=== PATIENT | male | born 1960 | race Caucasian/White ===

== ENCOUNTER 2018-02-14 11:13 | Observation (INO) ==
--- NOTE | 2018-02-13 14:34 | Anesthesia Evaluation PreOp ---
Date of Encounter: 02/14/18 Time of Encounter: 11:41 - Past History Planned Operation: Robotic Laparoscopic Cholecystectomy Cardiac History: Denies any Significant Hx Pulmonary History: Former smoker (quit 20 years ago), COPD DIRECTOR EXTERNAL COMMUNICATIONS History: Denies Any Significant HX Other Medical History: Diabetes Type II, Other (obesity BMI=44.6) Anesthesia History: No Prior Anesthetic Complications, Past Anesthesia Alcohol Use: none Drug use: none Medications and Allergies Insulin Glargine [Lantus] 60 unit SQ BID 01/07/16 [History] Metformin HCl [Glucophage] 1,000 mg PO BIDWM 01/07/16 [History] Albuterol Sulfate [Albuterol Inhaler] 2 puff IH Q4HR PRN #1 hfa.aer.ad 01/08/16 [Rx] Cetirizine HCl [Zyrtec] 10 mg PO DAILY #14 tablet 01/08/16 [Rx] Famotidine [Pepcid] 20 mg PO BID #30 tablet 05/07/17 [Rx] Hyoscyamine SL [Levsin SL] 0.125 mg SL Q4HR PRN #7 tab.subl 10/16/17 [Rx] Ondansetron ODT [Zofran ODT] 4 mg SL Q6HR PRN #7 tab.rapdis 10/16/17 [Rx] 3 Allergy/AdvReac Type Severity Reaction Status Date / Time ibuprofen [From Motrin] Allergy See Verified 02/10/18 11:12 Comments Penicillins [PCN] Allergy Hives Verified 02/10/18 11:12 - Meds/Allergy Pre-op Review Medications Reviewed: Yes Allergies Reviewed: Yes Beta Blockers on Current Med List: No Anesthesia Results - Labs Laboratory Tests 10/02/14 10/16/17 10/16/17 17:45 16:45 16:45 WBC 9.7 Hgb Hct 52.5 H Plt Count 281 PT 11.3 INR 1.1 PTT 30.0 Sodium 134 L Potassium BUN Creatinine 0.73 02/10/18 02/10/18 12:00 12:00 WBC Hgb 16.4 Hct Plt Count PT INR PTT Sodium Potassium 4.3 BUN 20 Creatinine - Imaging EKG: report reviewed (10/16/2017 SINUS RHYTHM BORDERLINE RIGHT AXIS DEVIATION Poor R wave progression) Additional studies: 06/16/2016 Stress Impression: Pharmacologic stress ECG is non-diagnostic for ischemia due to failure to reach target heart rate. Gated EF = 75%. Small sized, mild intensity, fixed apical inferior perfusion defect consistent with artifact. Otherwise, this was a fair quality study without evidence of ischemia or prior infarct. Clinical correlation suggested. Anesthesia Exam O2 Sat Height 1.73 m Height 1.73 m Weight 132.903 kg Weight 132.903 kg O2 Sat by Pulse Oximetry 94 Vital Signs Temp Pulse Resp BP Pulse Ox 97.5 F L 92 18 136/81 94 02/14/18 11:38 02/14/18 11:38 02/14/18 11:38 02/14/18 11:38 02/14/18 11:38 Blood Glucose* 295 Height: 5'8'' Weight: 293 lbs NPO (# of Hours): 8 Pain Scale: 0 Pain Scale Used: Numeric (1 - 10) - HEENT Pupil (Motor): EOMI Mallampati: III Teeth: Edentulous Oral Opening: Greater than 3 - DIRECTOR EXTERNAL COMMUNICATIONS LOC: Oriented DIRECTOR EXTERNAL COMMUNICATIONS Motor: Normal RUE, Normal LUE, Normal RLE, Normal LLE, Normal Face DIRECTOR EXTERNAL COMMUNICATIONS Sensory: Normal: RUE, LUE, RLE, LLE, Face - Cardiac Rhythm: Regular Murmur: None - Pulmonary Breath Sounds: bilateral Clear Respiratory Effort: Symmetrical Anesthesia Assess/Plan ASA Score: 3 Modified [place] Scale for Level of Consciousness: Cooperative, oriented, and tranquil Anesthetic Plan: General Monitoring Plan: Standard Monitors Recovery Plan: PACU
[2018-02-14] MEDS ORDERED: Lidocaine -MPF 4% 5 ML AMPUL ONE (11:48)
[2018-02-14] MEDS ORDERED: Ondansetron 4 MG/2 ML VIAL ONE (11:48)
[2018-02-14] MEDS ORDERED: *HR* FentaNYL (PF) 100 MCG/2 ML VIAL ONE ×3 (11:48→15:03)
[2018-02-14] MEDS ORDERED: Lidocaine -MPF 2% 2 ML VIAL ONE (11:48)
[2018-02-14] MEDS ORDERED: *HR* Rocuronium Bromide 50 MG/5 ML VIAL ONE (11:48)
[2018-02-14] MEDS ORDERED: Dexamethasone 4 MG/ML VIAL ONE (11:48)
[2018-02-14] MEDS ORDERED: *HR* Propofol 200 MG/20 ML VIAL IVP ONE ×2 (11:49→13:14)
[2018-02-14] MEDS ORDERED: *HR* Midazolam HCl 2 MG/2 ML VIAL ONE (11:49)
[2018-02-14] MEDS ORDERED: Insulin Regular, Human 100 UNIT/ML SQ ONE (11:52)
[2018-02-14] MEDS ORDERED: Albuterol 2.5 MG/3 ML NEBULIZER IH ONE (11:58)
[2018-02-14] MEDS ORDERED: Clindamycin 900 MG/50 ML 900 MG/50 ML IV.SOLN IVPB ONE (11:58)
[2018-02-14] MEDS ORDERED: Ringers Solution, Lactated 1,000 ML IVC SCH (12:00)
--- NOTE | 2018-02-14 12:07 | History & Physical Report ---
Date of Encounter: 02/14/18 Time of Encounter: 12:07 24 Hour HP Update - Instructions Instructions: If the History and Physical is less than 30 days old and was completed prior to A.M. admission and or procedure and has NOT been updated on calendar day of procedure please complete this update prior to performing procedure. - Update Patient reports changes in Medical Condition: No Changes in examination, assessment, or condition: No Changes in Medication: No Surgery Remains Indicated: Yes Consent for Planned Operative Procedure(s) Verified: Yes - Pre-Operative Checklist Prophylactic Antibiotic Ordered: Yes Home Medications Include Beta Lynette: No Is VTE Prophylaxis Indicated?: Yes
[2018-02-14] MEDS ORDERED: *HR* OxyCODONE Immed Rel 5 MG TABLET PO PRN (13:30)
[2018-02-14] MEDS ORDERED: *HR* FentaNYL (PF) 100 MCG/2 ML VIAL IVP PRN (13:30)
[2018-02-14] MEDS ORDERED: *HR* Labetalol 20 MG/4 ML SYRINGE IVP PRN (13:30)
[2018-02-14] MEDS ORDERED: *HR* Promethazine 25 MG/ML VIAL IVP PRN (13:30)
[2018-02-14] MEDS ORDERED: Ondansetron 4 MG/2 ML VIAL IVP ONE (13:30)
[2018-02-14] MEDS ORDERED: MORPHINE SUL Oral CONC 10 MG/0.5 ML ORAL.SYG SL PRN (13:30)
[2018-02-14] MEDS ORDERED: Lacri-Lube 3.5 GM TUBE ONE (13:52)
[2018-02-14] MEDS ORDERED: *HR* Metoprolol 5 MG/5 ML VIAL IVP ONE (14:19)
--- NOTE | 2018-02-14 15:17 | Operative Note ---
Date of procedure: 02/14/18 Pre-op diagnosis: chronic cholecystitis Post-op diagnosis: same Procedure: Robotic cholecystectomy Complications: none immediate Anesthesia: GETA, local Local Anesthetics: 0.5% Sensorcaine HCL SubQ (cc) Surgeon: Lisa Mendoza Was there an yard assistant present: Yes Identification Technician: Rebecca Meza Estimated blood loss (cc): 30 Specimen: gallbladder and contents Condition: stable Disposition: PACU Procedure in Detail: Patient was brought into the operating suite. Placed supine on the operating table. Sign-in was performed and everyone was in agreement. Anesthesia was induced and patient was endotracheally intubated by anesthesia without incident and they also placed an OG-tube. Patient's right arm was tucked at the side. The abdomen was prepped and draped in the usual sterile fashion. Timeout was performed again everyone was in agreement. A supraumbilical incision was made through the skin into the subcutaneous tissue with an 11 blade. Towel clamps were placed in either side of the umbilicus for retraction. We used S retractors to dissect down to the anterior abdominal wall linea alba fascia. A Veress needle was placed in this incision and the water-drop test confirmed placement. The abdomen was insufflated. We then entered the abdomen with a 5 mm 0 degree laparoscope and a 5 mm X-sheila trocar. The area under entry was visualized there was no bleeding and no apparent bowel injury. We placed an 8 mm robotic port in the left lateral abdominal wall position under direct visualization after first incising the skin with an 11 blade. We then placed a right lateral abdominal wall 8 mm robotic port under direct visualization after first incising the skin with 11 blade.The supraumbilical 5 mm port was exchanged for a 12 mm port. We placed the 5 mm port in the right abdominal wall lateral to the 8mm port, after first incising the skin with an 11 blade. The patient was placed in slight reverse Trendelenburg left side down position. The robot was brought over the patient's right shoulder and all port sites and instruments as well as the camera were docked. The dome of the gallbladder was grasped and retracted cephalad by the yard assistant. The gallbladder was contracted and intrahepatic. The infundibulum of the gallbladder was grasped and retracted laterally. Using a [place] we dissected out the cystic duct and cystic artery. Two hemoclips were placed distally on the cystic duct, 1 proximally, and it was transected with curved scissors. Two hemoclips were placed proximally on the cystic artery, one distally, and transected with curved scissors. The gallbladder was removed off the cystic plate with the Bovie and any bleeding points were stopped with the Bovie. The gallbladder was then placed in a laparoscopic Endo Catch bag and removed via the supraumbilical incision site. The inferior edge of the liver was bluntly retracted cephalad. The cystic plate was irrigated with sterile saline. While elevating the large dense liver there was a small liver tear with oozing. The area was irrigated with sterile saline. A large piece of surgicel was placed at the area and a 19F michaela drain was placed beneath the liver edge and secured to the skin with a 2- 0 silk stitch. All irrigation was suctioned free from the abdomen. All insufflation was suctioned free from the abdomen and the trochars were removed. The abdominal wall at the supraumbilical incision site was closed with an 0 Vicryl figure of 8 stitch. 30 mL of 0.5% Marcaine plain was injected subcutaneously at the 4 port sites. We closed the skin at the two 8 mm port site with 4-0 Monocryl interrupted subcuticular stitches. The skin at the supraumbilical incision site was closed with a 4-0 Monocryl running subcuticular stitch. Steri-Strips and mastisol were applied to all wounds. The patient was awoken in the operating suite having tolerated the procedure well and was taken to PACU in stable condition after all lap and instrument counts were correct at the end of the case.
[2018-02-14 16:40] LABS: Prothrombin Time 11.4 Seconds (9.4-12.1)
--- NOTE | 2018-02-14 16:45 | Anesthesia Evaluation Post Op ---
Date of Encounter: 02/14/18 Time of Encounter: 16:43 - Vital Signs Vital Signs: Vital Signs/O2 Sat, Most Current Temp Pulse Resp BP Pulse Ox 98.6 F 91 22 146/78 92 02/14/18 16:15 02/14/18 16:35 02/14/18 16:35 02/14/18 16:35 02/14/18 16:35 - Lungs Lungs: Clear Ascult./Percussion - Airway Airway: Non-obstructed - Cardiovascular Regular Rate - Mental Status Mental Status: Alert & Oriented, Answers Appropriately - Pain Pain Scale: 6 Pain Scale used: Numeric (1 - 10) - Nausea Vomiting Nausea Vomiting: Not Present - Hydration Hydration: NPO, Has not voided - Discharge PostOp Status: Transfer Patient to floor
[2018-02-14] MEDS ORDERED: Ondansetron 4 MG/2 ML VIAL IVP PRN (17:49)
[2018-02-14] MEDS ORDERED: D5% in Water 1,000 ML IVC PRN (17:49)
[2018-02-14] MEDS ORDERED: Dextrose Gel 15 GM/37.5 ML TUBE PO PRN ×2 (17:49)
[2018-02-14] MEDS ORDERED: OXYCODONE Oral CONC 10 MG/0.5 ML ORAL.SYG SL PRN (17:49)
[2018-02-14] MEDS ORDERED: *HR* Dextrose 50 % in Water (Syg) 50 ML SYRINGE IVP PRN (17:49)
[2018-02-14] MEDS ORDERED: Naloxone 0.4 MG/ML INJ IVP PRN (17:49)
[2018-02-14] MEDS: *HR* OxyCODONE/APAP 5/325 TABLET PO PRN (20:15)
[2018-02-14] MEDS: 0.9 % Sodium Chloride 1,000 ML IVC SCH (20:15)
[2018-02-14] MEDS: Insulin LISPRO 300 UNITS/3 ML VIAL SQ SCH (20:16)
[2018-02-14 21:30] LABS: Hematocrit 45.8 % (37.5-50.1); Hemoglobin 15.7 g/dL (12.9-16.9)
[2018-02-15] MEDS: *HR* OxyCODONE/APAP 5/325 TABLET PO PRN ×2 (06:25→21:28)
[2018-02-15 07:17] LABS: Basophils % 0.2 %; Eosinophils % 0.2 %; Hematocrit 44.4 % (37.5-50.1); Hemoglobin 14.7 g/dL (12.9-16.9); Immature Granulocytes % 0.8 % (0-4); Lymphocytes # 2.8 K/mcL (0.6-4.6); Lymphocytes % 22.5 %; Mean Corpuscular HGB Conc 33.1 g/dL (31.6-35.5); Mean Corpuscular Hemoglobin 29.4 pg (28.0-33.3); Mean Corpuscular Volume 88.8 fL (83.0-100.0); Mean Platelet Volume 10.4 fL (9.4-12.4); Monocytes # 1.1 K/mcL (0.0-1.3); Monocytes % 9.2 %; Neutrophils # 8.3 K/mcL (1.6-8.9); Platelet Count 241 K/mcL (140-400); Red Cell Distribution Width 13.3 % (11.5-14.5); Segmented Neutrophils % 67.1 %
[2018-02-15 07:42] LABS: Alanine Aminotransferase 83 Units/L (7-52); Albumin 4.4 g/dL (3.5-5.7); Albumin/Globulin Ratio 1.6 (1.1-2.2); Alkaline Phosphatase 100 Units/L (34-104); Aspartate Amino Transferase 52 Units/L (13-39); BUN/Creatinine Ratio 24 (6-26); Bilirubin,Direct 0.3 mg/dL (0.0-0.2); Bilirubin,Indirect 1.2 mg/dL (0.0-1.2); Bilirubin,Total 1.5 mg/dL (0.3-1.0); Blood Urea Nitrogen 15 mg/dL (6-20); Calcium 8.9 mg/dL (8.6-10.3); Carbon Dioxide 27 mEq/L (23-29); Chloride 101 mEq/L (98-107); Globulin 2.7 g/dL (2.4-3.5); Glucose 295 mg/dL (70-105); Osmolality,Calculated 296 (280-300); Potassium 3.8 mEq/L (3.5-5.1); Sodium 137 mEq/L (136-145); Total Protein 7.1 g/dL (6.4-8.9); eGFR For African Americans > 60 (> 60); eGFR For Non-African Americans > 60 (> 60)
[2018-02-15] MEDS: Insulin LISPRO 300 UNITS/3 ML VIAL SQ SCH ×3 (08:34→16:36)
[2018-02-15] MEDS: LIRAGLUTIDE 18 MG SQ SCH (08:36)
[2018-02-15] MEDS: Pantoprazole 40 MG VIAL IVP SCH (08:36)
--- NOTE | 2018-02-15 09:43 | General Surgery Progress Note ---
<Lena Hilliard Lisa - Last Filed: 02/15/18 09:59> Date of Encounter: 02/15/18 Time of Encounter: 09:30 - Assessment and Plan (1) S/P cholecystectomy Current Visit: Yes Status: Acute POD #1 Robotic assisted cholecystectomy with Dr. Mendoza Diabetic diet IV fluids- 50ml/hour Strict I&Os PPI therapy daily IS every 1 hour while awake Ambulate hallways TID with assistance Continue JUAN DANIEL drain- education May shower Repeat am labs- CBC, BMP, Hepatic panel (2) Elevated liver function tests Current Visit: Yes Status: Acute Repeat am labs (3) Morbid obesity with BMI of 40.0-44.9, adult Current Visit: Yes Status: Acute (4) Diabetes mellitus Current Visit: Yes Status: Chronic Resume home medication regimen Continue SSI Will continue to monitor and adjust as necessary Qualifiers: Diabetes mellitus type: type 2 Diabetes mellitus senior living insulin use: with senior living use Diabetes mellitus complication status: with hyperglycemia Qualified Code(s): E11.65 - Type 2 diabetes mellitus with hyperglycemia; Z79.4 - snf (current) use of insulin (5) Hypertension Current Visit: Yes Status: Chronic Continue home medication regimen Will continue to monitor and adjust as necessary Qualifiers: Hypertension type: essential hypertension Qualified Code(s): I10 - Essential (primary) hypertension (6) Hyperlipidemia Current Visit: Yes Status: Chronic Continue home medication regimen Qualifiers: Hyperlipidemia type: unspecified Qualified Code(s): E78.5 - Hyperlipidemia , unspecified (7) DVT prophylaxis Current Visit: Yes Status: Acute Ambulate hallways TID with assistance EPCDs to bilateral lower extremities for DVT prophylaxis Subjective Patient reports: still having pain (post-surgical pain), tolerating a regular diet, voiding w/o difficulty, no flatus, no bowel movement, fever (Tmax 99.8, Tcurrent 98.6), other (Patient reports that he is voiding in the toilet because he is unable to stand up and void) Objective Vital Signs - Last 8 Hours Temp Pulse Resp BP Pulse Ox 02/15/18 06:47 98.6 F 94 18 138/87 95 02/15/18 03:35 98.4 F 98 16 126/86 94 Intake and Output 02/14/18 02/15/18 02/15/18 23:59 07:59 15:59 Intake Total 480 / 480 Output Total 105 / 105 60 / 60 Balance -105 / -105 420 / 420 Intake: Oral 480 / 480 Output: Urine 0 / 0 Wound Drainage / 60 / 60 Right Lower Abdomen 85 / 85 60 / 60 Other: # Voids 2 Blood Glucose* 282 295 - General physical appearance well developed, well nourished, moderate pain - Eyes normal ocular movement - ENT normal mucosa, atraumatic, normocephalic - Neck Neck exam: trachea midline - Respiratory normal respiratory effort, clear to auscultation, other (diminished bibasilar bases) - Cardiovascular Cardiovascular exam: Present: RRR - Abdomen Abdomen: Present: bowel sounds present, soft, tender (expected post-operative tenderness), wound (JUAN DANIEL drain to bulb suction with serousang. drainage noted ( 70ml noted since midnight)) - Incision Incision: Present: clean and dry, intact - Neurologic CN 2-12 grossly intact - Psychiatric oriented to time, oriented to person, oriented to place, speech is normal, memory intact - Labs 02/15/18 06:39 02/15/18 06:39 Diabetes panel 02/15/18 Range/Units 06:39 Sodium 137 (136-145) mEq/L Potassium 3.8 (3.5-5.1) mEq/L Chloride 101 (98-107) mEq/L Carbon Dioxide 27 (23-29) mEq/L BUN 15 (6-20) mg/dL Creatinine 0.62 L (0.70-1.30) mg/dL Glucose 295 H (70-105) mg/dL Calcium 8.9 (8.6-10.3) mg/dL AST 52 H (13-39) Units/L ALT 83 H (7-52) Units/L Alkaline Phosphatase 100 (34-104) Units/L Albumin 4.4 (3.5-5.7) g/dL Calcium panel 02/15/18 Range/Units 06:39 Calcium 8.9 (8.6-10.3) mg/dL Albumin 4.4 (3.5-5.7) g/dL Pituitary panel 02/15/18 Range/Units 06:39 Sodium 137 (136-145) mEq/L Potassium 3.8 (3.5-5.1) mEq/L Chloride 101 (98-107) mEq/L Carbon Dioxide 27 (23-29) mEq/L BUN 15 (6-20) mg/dL Creatinine 0.62 L (0.70-1.30) mg/dL Glucose 295 H (70-105) mg/dL Calcium 8.9 (8.6-10.3) mg/dL Adrenal panel 02/15/18 Range/Units 06:39 Sodium 137 (136-145) mEq/L Potassium 3.8 (3.5-5.1) mEq/L Chloride 101 (98-107) mEq/L Carbon Dioxide 27 (23-29) mEq/L BUN 15 (6-20) mg/dL Creatinine 0.62 L (0.70-1.30) mg/dL Glucose 295 H (70-105) mg/dL Calcium 8.9 (8.6-10.3) mg/dL Total Bilirubin 1.5 H (0.3-1.0) mg/dL AST 52 H (13-39) Units/L ALT 83 H (7-52) Units/L Alkaline Phosphatase 100 (34-104) Units/L Albumin 4.4 (3.5-5.7) g/dL - VTE Documentation of Mechanical Device: Intermittent pneumatic compression device Consult Discharge Plan - Plan Referrals: Lisa Mendoza MD [Partnered Physician] - 03/04/18 11:30 am - Attending Attestation For this encounter, I have reviewed the BRUSH HOLDER ASSEMBLER or PA documentation, treatment plan, and medical decision making; and I have had face to face time with this patient. <Lisa Mendoza - Last Filed: 02/15/18 17:04> Date of Encounter: 02/15/18 Objective Vital Signs - Last 8 Hours Temp Pulse Resp BP Pulse Ox 02/15/18 16:24 97.9 F 94 20 99/64 93 02/15/18 12:10 98.5 F 100 16 106/70 95 Intake and Output 02/15/18 02/15/18 02/15/18 07:59 15:59 23:59 Intake Total 480 / 480 60 / 60 Output Total 60 / 60 5 / 5 Balance 420 / 420 55 / 55 Intake: Oral 480 / 480 60 / 60 Output: Urine 0 / 0 Wound Drainage 60 / 60 5 / 5 Right Lower Abdomen 60 / 60 5 / 5 Other: Blood Glucose* 282 298 - Labs 02/15/18 06:39 07/10/18 06:39 Diabetes panel 02/15/18 Range/Units 06:39 Sodium 137 (136-145) mEq/L Potassium 3.8 (3.5-5.1) mEq/L Chloride 101 (98-107) mEq/L Carbon Dioxide 27 (23-29) mEq/L BUN 15 (6-20) mg/dL Creatinine 0.62 L (0.70-1.30) mg/dL Glucose 295 H (70-105) mg/dL Calcium 8.9 (8.6-10.3) mg/dL AST 52 H (13-39) Units/L ALT 83 H (7-52) Units/L Alkaline Phosphatase 100 (34-104) Units/L Albumin 4.4 (3.5-5.7) g/dL Calcium panel 02/15/18 Range/Units 06:39 Calcium 8.9 (8.6-10.3) mg/dL Albumin 4.4 (3.5-5.7) g/dL Pituitary panel 02/15/18 Range/Units 06:39 Sodium 137 (136-145) mEq/L Potassium 3.8 (3.5-5.1) mEq/L Chloride 101 (98-107) mEq/L Carbon Dioxide 27 (23-29) mEq/L BUN 15 (6-20) mg/dL Creatinine 0.62 L (0.70-1.30) mg/dL Glucose 295 H (70-105) mg/dL Calcium 8.9 (8.6-10.3) mg/dL Adrenal panel 02/15/18 Range/Units 06:39 Sodium 137 (136-145) mEq/L Potassium 3.8 (3.5-5.1) mEq/L Chloride 101 (98-107) mEq/L Carbon Dioxide 27 (23-29) mEq/L BUN 15 (6-20) mg/dL Creatinine 0.62 L (0.70-1.30) mg/dL Glucose 295 H (70-105) mg/dL Calcium 8.9 (8.6-10.3) mg/dL Total Bilirubin 1.5 H (0.3-1.0) mg/dL AST 52 H (13-39) Units/L ALT 83 H (7-52) Units/L Alkaline Phosphatase 100 (34-104) Units/L Albumin 4.4 (3.5-5.7) g/dL - Attending Attestation I have personally performed a face to face evaluation on this patient. I have reviewed and agree with the care plan. History and Exam by me shows:
[2018-02-15] MEDS ORDERED: Insulin DETEMIR 100 UNIT/ML X5UNITS SQ SCH (21:00)
[2018-02-15] MEDS: 0.9 % Sodium Chloride 1,000 ML IVC SCH (21:24)
[2018-02-15] MEDS: *HR* Metformin 500 MG TABLET PO SCH (21:25)
[2018-02-16] MEDS: *HR* OxyCODONE/APAP 5/325 TABLET PO PRN (05:30)
[2018-02-16 06:51] LABS: Basophils % 0.3 %; Eosinophils # 0.2 K/mcL (0.0-0.6); Eosinophils % 1.9 %; Hematocrit 36.1 % (37.5-50.1); Immature Granulocytes % 0.8 % (0-4); Lymphocytes # 2.7 K/mcL (0.6-4.6); Lymphocytes % 26.8 %; Mean Corpuscular HGB Conc 33.8 g/dL (31.6-35.5); Mean Corpuscular Hemoglobin 30.5 pg (28.0-33.3); Mean Corpuscular Volume 90.3 fL (83.0-100.0); Mean Platelet Volume 10.1 fL (9.4-12.4); Monocytes # 1.2 K/mcL (0.0-1.3); Monocytes % 11.7 %; Neutrophils # 5.9 K/mcL (1.6-8.9); Platelet Count 191 K/mcL (140-400); Red Cell Distribution Width 13.2 % (11.5-14.5); Segmented Neutrophils % 58.5 %
[2018-02-16 06:52] LABS: Hemoglobin 12.2 g/dL (12.9-16.9)
[2018-02-16 07:08] LABS: Alanine Aminotransferase 48 Units/L (7-52); Albumin 3.5 g/dL (3.5-5.7); Albumin/Globulin Ratio 1.5 (1.1-2.2); Alkaline Phosphatase 86 Units/L (34-104); Aspartate Amino Transferase 16 Units/L (13-39); BUN/Creatinine Ratio 28 (6-26); Bilirubin,Direct 0.3 mg/dL (0.0-0.2); Bilirubin,Indirect 0.9 mg/dL (0.0-1.2); Bilirubin,Total 1.2 mg/dL (0.3-1.0); Blood Urea Nitrogen 15 mg/dL (6-20); Calcium 8.6 mg/dL (8.6-10.3); Carbon Dioxide 26 mEq/L (23-29); Chloride 106 mEq/L (98-107); Globulin 2.3 g/dL (2.4-3.5); Glucose 155 mg/dL (70-105); Osmolality,Calculated 296 (280-300); Potassium 3.6 mEq/L (3.5-5.1); Sodium 141 mEq/L (136-145); Total Protein 5.8 g/dL (6.4-8.9); eGFR For African Americans > 60 (> 60); eGFR For Non-African Americans > 60 (> 60)
[2018-02-16 07:48] VITALS: BP 98/58
[2018-02-16] MEDS: Insulin LISPRO 300 UNITS/3 ML VIAL SQ SCH ×2 (09:00→12:38)
[2018-02-16] MEDS: *HR* Metformin 500 MG TABLET PO SCH (09:01)
[2018-02-16] MEDS: Pantoprazole 40 MG VIAL IVP SCH (09:01)
[2018-02-16] MEDS: LIRAGLUTIDE 18 MG SQ SCH (09:01)
--- NOTE | 2018-02-16 11:58 | Discharge Summary ---
Orders not resulted at time of discharge: Pending orders 02/14/18 15:04 Surgical Pathology [PTH] Routine Date of Encounter: 02/16/18 Time of Encounter: 11:30 - Discharge Diagnosis (1) S/P cholecystectomy Priority: Primary Status: Acute (2) Elevated liver function tests Priority: Secondary Status: Resolved (3) Morbid obesity with BMI of 40.0-44.9, adult Priority: Secondary Status: Chronic (4) Diabetes mellitus Priority: Secondary Status: Chronic Qualifiers: Diabetes mellitus type: type 2 Diabetes mellitus nursing home insulin use: with nursing home use Diabetes mellitus complication status: with hyperglycemia Qualified Code(s): E11.65 - Type 2 diabetes mellitus with hyperglycemia; Z79.4 - terminal clerk (current) use of insulin (5) Hypertension Priority: Secondary Status: Chronic Qualifiers: Hypertension type: essential hypertension Qualified Code(s): I10 - Essential (primary) hypertension (6) Hyperlipidemia Priority: Secondary Status: Chronic Qualifiers: Hyperlipidemia type: unspecified Qualified Code(s): E78.5 - Hyperlipidemia , unspecified General Surgery Exam Initial Vital Signs Temp Pulse Resp BP Pulse Ox 97.5 F L 92 18 136/81 94 02/14/18 11:38 02/14/18 11:38 02/14/18 11:38 02/14/18 11:38 02/14/18 11:38 - General physical appearance well developed, well nourished, no distress, obese - Eyes normal ocular movement - ENT normal mucosa, atraumatic, normocephalic - Neck trachea midline - Respiratory normal respiratory effort, clear to auscultation - Cardiovascular Cardiovascular exam: Present: RRR - Abdomen Abdomen general surgery: Present: bowel sounds present, soft, tender (Expected postoperative tenderness), wound (JUAN DANIEL drain to bulb suction with serous drainage noted (50ml noted since midnight)) - Incision Incision: Present: clean and dry, intact - Integumentary Integumentary general surgery: Present: warm and dry - Neurologic Present: CN 2-12 grossly intact - Musculoskeletal Present: normal gait, normal posture - Psychiatric Psychiatric general surgery: Present: appropriate, oriented to person, oriented to place, oriented to time, speech is normal, memory intact - Hospital Course Hospital course: Mr. Vazquez is a 57 year old male who is postoperative day #2 from a laparoscopic cholecystectomy with Dr. Mendoza. The patient did have a liver laceration during surgery and subsequently had a drain placed. He did have a mild elevation in his liver enzymes after surgery. He was monitored in the hospital to ensure that liver enzymes did improve. His liver enzymes are improved on postoperative day #2. He is tolerating a diet without nausea or vomiting. His pain is controlled with oral pain mediction. His vital signs are stable and he is afebrile. He is voiding and ambulating without difficulty. We will begin discharge planning to home with JUAN DANIEL drain in place. Education will be complete prior to discharge. His sister states that she can care for the drain at home. He will follow-up in the office in one week for a drain check and repeat labs. - Time Spent with Patient Total time spent providing and/or coordinating discharge services: Less than 30 minutes - Discharge Medications Prescriptions: OxyCODONE/APAP 5/325 [Percocet 5/325 MG] 1 each PO Q4HR PRN 5 Days #30 tablet PRN Reason: Pain Commode - Three In One [THREE IN ONE COMMODE] 1 each .ROUTE PRN #1 each Docusate [Colace] 100 mg PO BID #30 capsule Home Medications: Albuterol Sulfate [Ventolin Hfa] 2 puff IH Q4H PRN 02/14/18 [History] Anastrozole [Arimidex] 1 mg PO DAILY 02/14/18 [History] Diclofenac Potassium 50 mg PO BID 02/14/18 [History] Fluticasone/Vilanterol [Breo Ellipta 100-25 Mcg INH] 1 puff IH DAILY 02/14/18 [ History] Insulin Glargine,Hum.rec.anlog [Basaglar Kwikpen U-100] 70 unit SQ HS 02/14/18 [ History] Liraglutide [Victoza 3-Michael] 18 mg SQ QAM 02/14/18 [History] Lisinopril [Zestril] 5 mg PO DAILY 02/14/18 [History] Metformin HCl [Glucophage] 1,000 mg PO BID 02/14/18 [History] Pravastatin Sodium [Pravachol] 20 mg PO HS 02/14/18 [History] Tamsulosin [Flomax] 0.8 mg PO DAILY 02/14/18 [History] Commode - Three In One [THREE IN ONE COMMODE] 1 each .ROUTE PRN #1 each [Rx] Docusate [Colace] 100 mg PO BID #30 capsule 02/16/18 [Rx] OxyCODONE/APAP 5/325 [Percocet 5/325 MG] 1 each PO Q4HR PRN 5 Days #30 tablet [Rx] Allergies/Adverse Reactions: 3 Allergy/AdvReac Type Severity Reaction Status Date / Time ibuprofen [From Motrin] Allergy See Verified 02/14/18 12:20 Comments Penicillins [PCN] Allergy Hives Verified 02/14/18 12:20 Date of admission: 02/15/18 15:08 Primary care physician: An Carmen CNP Discharging clinician: Lisa Mendoza ([facility]) Anticipated date of discharge: 02/16/18 Labs on day of discharge: Labs from last 24 hours 02/16/18 02/16/18 02/16/18 11:44 08:59 06:29 WBC RBC Hgb Hct MCV MCH MCHC RDW Plt Count MPV Immature Gran % Seg Neutrophils % Lymphocytes % Monocytes % Eosinophils % Basophils % Neutrophils # Lymphocytes # Monocytes # Eosinophils # Basophils # Sodium 141 Potassium 3.6 Chloride 106 Carbon Dioxide 26 BUN 15 Creatinine 0.54 L Est GFR ( Amer) > 60 Est GFR (Non-Af Amer) > 60 BUN/Creatinine Ratio 28 H Glucose 155 H POC Glucose 216 H 153 H Calculated Osmolality 296 Calcium 8.6 Total Bilirubin 1.2 H Direct Bilirubin 0.3 H Indirect Bilirubin 0.9 AST 16 ALT 48 Alkaline Phosphatase 86 Serum Total Protein 5.8 L Albumin 3.5 Globulin 2.3 L Albumin/Globulin Ratio 1.5 02/16/18 02/15/18 02/15/18 06:29 20:44 16:21 WBC 10.1 RBC 4.00 L Hgb 12.2 L D Hct 36.1 L MCV 90.3 MCH 30.5 MCHC 33.8 RDW 13.2 Plt Count 191 MPV 10.1 Immature Gran % 0.8 Seg Neutrophils % 58.5 Lymphocytes % 26.8 Monocytes % 11.7 Eosinophils % 1.9 Basophils % 0.3 Neutrophils # 5.9 Lymphocytes # 2.7 Monocytes # 1.2 Eosinophils # 0.2 Basophils # 0.0 Sodium Potassium Chloride Carbon Dioxide BUN Creatinine Est GFR ( Amer) Est GFR (Non-Af Amer) BUN/Creatinine Ratio Glucose POC Glucose 293 H 298 H Calculated Osmolality Calcium Total Bilirubin Direct Bilirubin Indirect Bilirubin AST ALT Alkaline Phosphatase Serum Total Protein Albumin Globulin Albumin/Globulin Ratio 02/15/18 02/15/18 12:12 08:13 WBC RBC Hgb Hct MCV MCH MCHC RDW Plt Count MPV Immature Gran % Seg Neutrophils % Lymphocytes % Monocytes % Eosinophils % Basophils % Neutrophils # Lymphocytes # Monocytes # Eosinophils # Basophils # Sodium Potassium Chloride Carbon Dioxide BUN Creatinine Est GFR ( Amer) Est GFR (Non-Af Amer) BUN/Creatinine Ratio Glucose POC Glucose 282 H 295 H Calculated Osmolality Calcium Total Bilirubin Direct Bilirubin Indirect Bilirubin AST ALT Alkaline Phosphatase Serum Total Protein Albumin Globulin Albumin/Globulin Ratio - Patient Status Disposition: Home, Self-Care Condition: Good Functional capacity at discharge: independent ambulation Overall status at discharge: patient is progressing back to baseline - Discharge Instructions Follow Up With: Lisa Mendoza MD [Partnered Physician] - 03/04/18 11:30 am Lena Hilliard CNP [Advanced Practice Nurse] - 02/21/18 2:30 pm (surgery follow-up; complete labs prior to appointment) Additional Instructions: #1 may shower, no tub bath for 2 weeks #2 wash incisions with soap and water and pat dry daily #3 no lifting, pushing, pulling more than 15 pounds for the next 2 weeks #4 no driving until off narcotics for 24 hours and able to safely react in the car #5 may climb stairs JUAN DANIEL drain care- see handout (clean around the drain was soap and water daily in the shower and pat dry, apply dry dressing and tape to secure daily). Empty drain and record ml of output on drain record. Bring to follow-up appointment on 02/21/18 with Lena Hilliard CNP) Complete labs prior to appointment o02/21/18 with Lena Hilliard CNP - Diet and Activity Activity: other (See additional instructions above) Diet: advance to your usual diet - Attending Attestation For this encounter, I have reviewed the PRODUCT SUPPORT ANALYST or PA documentation, treatment plan, and medical decision making; and I have had face to face time with this patient.
== END 2018-02-16 15:52 | disposition home or self-care (01) ==
LOC: 3ANU 11:13 → SAMDAY 11:13 → 3ANU 17:22
PROVIDERS: ADMIT Surgery; ATTEND Surgery